=== PATIENT | female | born 1980 | race Caucasian/White ===

== ENCOUNTER 2021-12-16 06:25 | Outpatient (CLI) | payer MEDICARE, MEDICAID, SELFPAY ==
--- NOTE | 2021-12-12 14:02 | PC.NURSE ---
PT CALLED AND INSTRUCTIONS REVIEWED. PT VERBALIZES UNDERSTANDING DENIES ANY QUESTIONS.
--- NOTE | 2021-12-16 06:56 | SUR.PREOP ---
Patient brought to GI Lab. Instructions for patient undergoing Capsule Endoscopy reviewed with patient. Consent form signed. Sensor array applied to patient's abdomen and connected to recorded. Patient swallowed capsule with 16 ozs of water infused with Simethicone. Patient instructed they may have clear liquids at 0845 this AM and eat or drink at 1045 this AM. Patient instructed to return to GI Lab at 1500 this afternoon for removal of recording device and to call [phone] or to return to the hospital if any nausea and vomiting or abdominal pain is experienced.
--- NOTE | 2021-12-16 14:54 | SUR.PHASEII ---
Patient returned [facility] Caps[facility] equipment intact. Equipment docked to create video. Patient verbalizes understanding that Dr. Hein's office will contact her with results. Patient has no questions at this time and left the hospital safely. Dr. Hein notified of equipment return.
== END 2021-12-16 06:26 | disposition home or self-care (01) ==
PROVIDERS: Visit Provider Internal Medicine Gastroenterology
PROC: 0DJ07ZZ Inspection of Upper Intestinal Tract, Via Natural or Artificial Opening (ICD-10-PCS; CPT 91110; principal; 2021-12-16 07:00)
DX: D50.9 Iron deficiency anemia, unspecified (principal)
CPT/HCPCS: 91110